=== PATIENT | male | born 1975 | race Caucasian/White ===

== ENCOUNTER 2024-01-02 02:10 | Emergency (ER) | payer OTHER ==
[2024-01-02] MEDS ORDERED: CEPH-588 PO (03:49)
== END 2024-01-02 03:50 | disposition home or self-care (01) ==
LOC: MED 02:10
DX: S31.20XA Unspecified open wound of penis, initial encounter (principal); Z79.899 Other long term (current) drug therapy; X58.XXXA Exposure to other specified factors, initial encounter; Y92.89 Other specified places as the place of occurrence of the external cause; Y93.89 Activity, other specified; Y99.8 Other external cause status
CPT/HCPCS: 99283